=== PATIENT | female | born 1955 | race Two or more races ===

== ENCOUNTER 2017-11-18 22:03 | Inpatient (IN) | payer MEDICAID ==
[~2017-11-18] VITALS: Ht 154.9 cm; Wt 72.6 kg
[2017-11-18] MEDS ORDERED: SODIUM CHLORIDE 0.9% 1,000 ML IV ONE (23:06)
[2017-11-19 00:16] LABS: MEAN CORPUSCULAR HEMOGLOBIN 22.6 pg (28.0-32.0); MEAN CORPUSCULAR VOLUME 74.5 fL (81.0-99.0); MEAN PLATELET VOLUME 6.7 fl (7.4-10.4); PLATELET 400 x1000/uL (130-400); RED BLOOD CELL COUNT 2.74 mill/uL (4.2-5.4); RED CELL DISTRIBUTION WIDTH 23.6 % (11.6-14.6)
[2017-11-19 00:22] LABS: CHLORIDE 108 mEq/L (98-107)
[2017-11-19 00:36] LABS: HEMATOCRIT. 20.4 % (36.0-48.0); HEMOGLOBIN. 6.2 g/dL (12.0-16.0)
[2017-11-19 00:53] LABS: INR 1.2; PROTHROMBIN TIME 12.5 sec (9.1-11.1)
[2017-11-19 01:34] LABS: CLARITY URINE CLOUDY (CLEAR); COLOR URINE YELLOW (YELLOW); KETONES URINE NEGATIVE (NEGATIVE); LEUKOCYTE ESTERASE URINE TRACE (NEGATIVE); NITRITE URINE NEGATIVE (NEGATIVE); OCCULT BLOOD URINE NEGATIVE (NEGATIVE); PROTEIN URINE 4+ (NEGATIVE); SPECIFIC GRAVITY URINE 1.013 (1.005-1.030); UROBILINOGEN URINE 0.2 E.U./dL (0.2-1.0)
[2017-11-19 01:41] LABS: PLATELET ESTIMATE NORMAL
[2017-11-19] MEDS ORDERED: LORA1TAB SL (03:30)
[2017-11-19] MEDS ORDERED: LEVO75TA7 MT (03:31)
[2017-11-19] MEDS ORDERED: KEPP250 PO (03:31)
[2017-11-19] MEDS ORDERED: HYDR-4009 PO (03:32)
[2017-11-19 03:57] VITALS: BP 76/48
[2017-11-19 04:00] VITALS: BP 96/48
[2017-11-19] MEDS ORDERED: ONDANSETRON HCL 4MG/2ML INJ IV PRN (04:00)
[2017-11-19] MEDS ORDERED: MORPHINE SULFATE 4 MG/ML CPJ (NOT FOR IM USE) IV PRN (04:00)
[2017-11-19] MEDS ORDERED: ACETAMINOPHEN 325MG TABLET PO PRN (04:00)
[2017-11-19] MEDS ORDERED: CLONIDINE 0.1MG TABLET PO PRN (04:00)
[2017-11-19] MEDS ORDERED: LORAZEPAM 2MG/ML CPJ IV PRN (04:00)
[2017-11-19] MEDS ORDERED: SODIUM CHLORIDE 0.9% 1,000 ML IV SCH (06:00)
[2017-11-19 08:00] VITALS: BP 83/50
[2017-11-19] MEDS ORDERED: MEDICATION NOT ON FORMULARY EA (Lorazepam 1 MG) SL SCH (09:30)
[2017-11-19] MEDS ORDERED: HYDROCODONE/ACETAMINOPHEN 10/325MG TABLET PO PRN (09:45)
[2017-11-19] MEDS ORDERED: LEVOTHYROXINE SODIUM 75MCG TABLET PO SCH (10:00)
[2017-11-19] MEDS ORDERED: LEVETIRACETAM 250MG TABLET PO SCH (10:00)
[2017-11-19 12:00] VITALS: BP 85/49
[2017-11-19 16:01] VITALS: BP 107/58
== END 2017-11-19 17:20 | disposition hospice, home (50) | DRG 469 ==
LOC: ER 22:03 → 5WST 11-19 00:52 → ENRESERV 11-19 01:47
PROVIDERS: ADMIT Hospitalist; ATTEND Hospitalist
DX: N17.9 Acute kidney failure, unspecified (principal); E43 Unspecified severe protein-calorie malnutrition; I95.9 Hypotension, unspecified; D64.9 Anemia, unspecified; G40.909 Epilepsy, unspecified, not intractable, without status epilepticus; Z51.5 Encounter for palliative care; N39.0 Urinary tract infection, site not specified; Z74.01 Bed confinement status; Z85.05 Personal history of malignant neoplasm of liver; Z85.43 Personal history of malignant neoplasm of ovary; Z79.1 Long term (current) use of non-steroidal anti-inflammatories (NSAID); Z79.899 Other long term (current) drug therapy; Z68.30 Body mass index [BMI] 30.0-30.9, adult
CPT/HCPCS: 36415; 51702; 80053; 81003; 83605; 83690; 85025; 85610; 86850; 86900; 86920; 93005; 96361; 96374; 99285; J2405; J7030; A4315